=== PATIENT | female | born 1980 | race Caucasian/White ===

== ENCOUNTER 2017-12-14 21:23 | Emergency (ER) | payer OTHER ==
[~2017-12-14] VITALS: Ht 157.5 cm; Wt 50.8 kg
[2017-12-14 21:39] VITALS: Ht 157.5 cm; Wt 50.8 kg
[2017-12-15 00:36] VITALS: BP 147/87
== END 2017-12-15 00:36 | disposition home or self-care (01) ==
LOC: ED 21:23
DX: N23 Unspecified renal colic (principal); I10 Essential (primary) hypertension
CPT/HCPCS: J1885

== ENCOUNTER 2018-04-07 13:37 | Emergency (ER) | payer SELFPAY ==
[~2018-04-07] VITALS: Ht 160 cm; Wt 50.5 kg
[2018-04-07 13:43] VITALS: Ht 160 cm; Wt 50.5 kg
[2018-04-07 14:25] LABS: microscopic required? NO
[2018-04-07 14:37] LABS: UA SPECIFIC GRAVITY <=1.005 (1.005-1.035); urine erythrocyte NEGATIVE (NEGATIVE)
[2018-04-07 18:17] VITALS: BP 141/79
== END 2018-04-07 18:17 | disposition home or self-care (01) ==
LOC: ED 13:37
PROVIDERS: Emergency Medicine
DX: B37.3 Candidiasis of vulva and vagina (principal); D25.9 Leiomyoma of uterus, unspecified; R10.2 Pelvic and perineal pain; I10 Essential (primary) hypertension; F41.9 Anxiety disorder, unspecified
CPT/HCPCS: J1885; Q0092